=== PATIENT | male | born 1990 | race African-American/Black ===

== ENCOUNTER 2016-07-29 07:00 | Emergency (ER) | payer OTHER ==
[~2016-07-29] VITALS: Ht 185.4 cm; Wt 150.0 kg
[2016-07-29] MEDS ORDERED: CARAFATE 1GM1 G PO (08:16)
[2016-07-29 08:41] VITALS: BP 140/77; PULSE 68; TEMP 97.8
== END 2016-07-29 08:41 | disposition home or self-care (01) ==
LOC: COL.ER 07:00
DX: K29.70 Gastritis, unspecified, without bleeding (principal); K20.9 Esophagitis, unspecified; E66.9 Obesity, unspecified; Z68.41 Body mass index [BMI] 40.0-44.9, adult
CPT/HCPCS: J2765

== ENCOUNTER 2016-08-02 07:00 | Emergency (ER) | payer OTHER ==
[~2016-08-02] VITALS: Ht 185.4 cm; Wt 150.0 kg
[~2016-08-02 07:00] MED LIST: CARAFATE 1GM1 G PO
[2016-08-02 07:03] VITALS: BP 145/58
[2016-08-02 07:44] LABS: BASO # 0.1 (0.0-0.2); BASO % 0.7 % (0.0-2.0); EOS # 0.4 (0.0-0.7); EOS % 4.3 % (0-4.0); GRAN # 5.6 (1.4-6.5); GRAN % 57.5 % (42.2-75.2); HEMATOCRIT 48.2 % (42.0-52.0); HEMOGLOBIN 15.4 g/dl (13.5-18.0); LYMPH % 30.8 % (20.0-51.0); MEAN CELL VOLUME 80 fl (80.0-100.0); MEAN CORPUSCULAR HEMOGLOBIN 26 pg (27.0-31.0); MEAN CORPUSCULAR HGB CONC 32 g/dl (33.0-37.0); MEAN PLATELET VOLUME 9.7 fl (7.4-10.4); MONO # 0.6 (0.1-0.6); MONO % 6.3 % (1.7-9.3); PLATELET COUNT 328 K/mm3 (130-400); RED BLOOD COUNT 6.02 M/mm3 (4.20-5.60); REDCELL DISTRIBUTION WIDTH-CV 13.5 % (11.5-14.5); WHITE BLOOD COUNT 9.7 K/mm3 (4.8-10.8)
[2016-08-02 07:49] LABS: ADJUSTED CALCIUM 9.1 mg/dL (8.4-10.2); ALANINE AMINOTRANSFERASE 41 U/L (21-72); ALBUMIN 4.1 gm/dL (3.5-5.0); ALKALINE PHOSPHATASE 66 U/L (50-136); ANION GAP 13 mmol/L (7-16); BILIRUBIN,TOTAL 0.5 mg/dL (0.0-1.0); BLOOD UREA NITROGEN 12 mg/dL (9-20); CALCIUM 9.2 mg/dL (8.4-10.2); CARBON DIOXIDE 26 mmol/L (22-30); CHLORIDE 101 mmol/L (98-107); CREATININE, serum 1.03 mg/dL (0.66-1.25); GLUCOSE 107 mg/dL (74-106); LIPASE 65 U/L (23-300); POTASSIUM 3.6 mmol/L (3.4-5.0); SODIUM 141 mmol/L (137-145); TOTAL PROTEIN 7.8 gm/dL (6.4-8.2)
[2016-08-02 07:56] LABS: C-REACTIVE PROTEIN < 0.5 mg/dL (0.0-0.9)
[2016-08-02 08:00] VITALS: TEMP 97.1
[2016-08-02] MEDS ORDERED: NORCO 325 MG-51 TAB PO (10:43)
[2016-08-02 11:24] VITALS: PULSE 81
== END 2016-08-02 11:24 | disposition home or self-care (01) ==
LOC: COL.ER 07:00
PROVIDERS: Nurse Practitioner
DX: R10.84 Generalized abdominal pain (principal); R11.10 Vomiting, unspecified
CPT/HCPCS: J2270; J2405; J2765; J7030; Q9967

== ENCOUNTER 2017-11-29 08:14 | Observation (INO) | payer SELFPAY ==
[~2017-11-29] VITALS: Ht 185.4 cm; Wt 127.2 kg
[~2017-11-29 08:14] MED LIST changes: +NORCO 325 MG-51 TAB PO
[2017-11-29 08:52] LABS: BASO # 0.1 (0.0-0.2); BASO % 0.5 % (0.0-2.0); EOS # 0.3 (0.0-0.7); GRAN # 7.3 (1.4-6.5); GRAN % 69.6 % (42.2-75.2); HEMATOCRIT 45.4 % (42.0-52.0); HEMOGLOBIN 14.8 g/dl (13.5-18.0); LYMPH # 2.2 (1.2-3.4); LYMPH % 20.5 % (20.0-51.0); MEAN CELL VOLUME 79 fl (80.0-100.0); MEAN CORPUSCULAR HEMOGLOBIN 26 pg (27.0-31.0); MEAN CORPUSCULAR HGB CONC 33 g/dl (33.0-37.0); MEAN PLATELET VOLUME 9.9 fl (7.4-10.4); MONO # 0.6 (0.1-0.6); MONO % 6.1 % (1.7-9.3); PLATELET COUNT 333 K/mm3 (130-400); RED BLOOD COUNT 5.73 M/mm3 (4.20-5.60); REDCELL DISTRIBUTION WIDTH-CV 13.7 % (11.5-14.5)
[2017-11-29 09:06] LABS: ALBUMIN 4.1 gm/dL (3.5-5.0); BILIRUBIN,TOTAL 0.3 mg/dL (0.0-1.0); C-REACTIVE PROTEIN 0.6 mg/dL (0.0-0.9); CALCIUM 8.9 mg/dL (8.4-10.2); CREATININE, serum 1.06 mg/dL (0.66-1.25); POTASSIUM 3.4 mmol/L (3.4-5.0); TOTAL PROTEIN 7.6 gm/dL (6.4-8.2)
[2017-11-29 09:26] LABS: COLLECTION METHOD CLEAN CATCH
[2017-11-29 09:34] LABS: AMORPHOUS CRYSTAL Present /uL; MUCOUS Present /lpf; PH 8 (5-8); SQUAMOUS EPITHELIAL 0-2 /hpf; URINE APPEARANCE Cloudy; URINE BACTERIA None Seen /hpf; URINE BILIRUBIN Negative (NEGATIVE); URINE BLOOD Negative (NEGATIVE); URINE COLOR Yellow; URINE GLUCOSE Negative (NEGATIVE); URINE KETONE Negative (NEGATIVE); URINE LEUKOCYTE ESTERASE Negative (NEGATIVE); URINE NITRATE Negative (NEGATIVE); URINE PROTEIN(semi-quant) 2+ (NEGATIVE); URINE RBC 0-2 /hpf
[2017-11-29 14:50] VITALS: BP 131/59; PULSE 59; TEMP 97.9
[2017-11-29 23:50] VITALS: BP 125/67; PULSE 64; TEMP 98.3
[2017-11-30 03:55] VITALS: BP 133/76; PULSE 66; TEMP 98
[2017-11-30 06:06] LABS: HEMATOCRIT 48.8 % (42.0-52.0); HEMOGLOBIN 15.1 g/dl (13.5-18.0); MEAN CELL VOLUME 82 fl (80.0-100.0); MEAN CORPUSCULAR HEMOGLOBIN 25 pg (27.0-31.0); MEAN CORPUSCULAR HGB CONC 31 g/dl (33.0-37.0); MEAN PLATELET VOLUME 9.6 fl (7.4-10.4); PLATELET COUNT 291 K/mm3 (130-400); RED BLOOD COUNT 5.95 M/mm3 (4.20-5.60); REDCELL DISTRIBUTION WIDTH-CV 13.9 % (11.5-14.5)
[2017-11-30 06:14] LABS: ALBUMIN 3.5 gm/dL (3.5-5.0); BILIRUBIN,TOTAL 0.6 mg/dL (0.0-1.0); CALCIUM 8.2 mg/dL (8.4-10.2); CREATININE, serum 0.98 mg/dL (0.66-1.25); POTASSIUM 3.7 mmol/L (3.4-5.0); TOTAL PROTEIN 7.1 gm/dL (6.4-8.2)
[2017-11-30 06:25] LABS: EOSINOPHIL 3 % (0-4); LYMPHOCYTE 13 % (20.0-51.0); NEUTROPHILS 76 % (42.0-75.2)
[2017-11-30 06:26] LABS: HYPOCHROMIA 2+; PLATELET ESTIMATE NORMAL (NORMAL)
[2017-11-30 07:26] VITALS: BP 139/81; PULSE 78; TEMP 98.9
== END 2017-11-30 09:35 | disposition home or self-care (01) ==
LOC: COL.ER 08:14 → SURG 11:04
PROVIDERS: Emergency Medicine; Surgery
DX: R10.9 Unspecified abdominal pain (principal)
CPT/HCPCS: G0378; J1170; J2405; J7030; Q9967